=== PATIENT | male | born 1955 | race Caucasian/White ===

== ENCOUNTER 2016-04-08 13:47 | Emergency (ER) | payer OTHER ==
[~2016-04-08] VITALS: Wt 120.5 kg
[~2016-04-08 13:47] MED LIST: AMLO-147 PO; AZIT250T4 PO; BENA40TA41 PO; ETHA400T25 PO; HYD25 PO; RIF120L PO; SENN-8 PO; VALS80TA2 PO
--- NOTE | 2016-04-08 15:43 | ERD ---
ER Documentation Chief Complaint Date/Time DATE: 04/08/16 TIME: 15:40 Chief Complaint COUGH, SOB, ONSET 4 DAYS, BODY PAIN, LEG PAIN HPI This is a 60-year-old male presents to the ER with chest pain for the last 15 days. Patient states that chest pain has been constant however he has bouts of very severe pain. Chest pain is described as dull pressure-like pain. He also complains of shortness of breath. Chest pain and shortness of breath is nonexertional. 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 Patient states that 4 days ago he developed a productive cough. He denies any fevers or chills. Patient has an extensive medical history of diabetes, hypertension, asthma. Patient also complaining of body pain. ROS 12 point review of systems was done, all negative except per HPI. Medications Home Meds Active Scripts Hydrocodone/Acetaminophen ([place] 5-325 Tablet) 1 Each Tablet, 1 TAB PO Q6H Y for PAIN, #20 TAB Prov:LIVAN BARR 04/08/16 Ibuprofen* (Motrin*) 400 Mg Tab, 400 MG PO Q6, #30 TAB Prov:LIVAN BARR 04/08/16 Valsartan* (Diovan*) 80 Mg Tablet, 80 MG PO DAILY for 30 Days, TAB Prov:YULISSA CAMPBELL MD 09/19/15 Rifampin* (Rifampin* Pediatric IV Syringe) 10 Mg/Ml Susp, 600 MG PO DAILY for 30 Days Prov:YULISSA CAMPBELL MD 09/19/15 Ethambutol HCl* (Myambutol*) 400 Mg Tablet, 2400 MG PO AC LUNCH for 30 Days, TAB Prov:YULISSA CAMPBELL MD 09/19/15 Azithromycin* (Azithromycin*) 250 Mg Tablet, 500 MG PO MoWeFr@09 for 30 Days, TAB Prov:YULISSA CAMPBELL MD 09/19/15 Reported Medications Benazepril Hcl* (Benazepril Hcl*) 40 Mg Tablet, 40 MG PO DAILY, #30 TAB 09/13/15 Amlodipine Besylate* (Amlodipine Besylate*) 10 Mg Tablet, 10 MG PO DAILY, #30 TAB 09/13/15 Hydrochlorothiazide* (Hydrochlorothiazide*) 25 Mg Tab, 25 MG PO DAILY, #30 TAB 09/13/15 Sennosides/Docusate Sodium* (Senna-S*) 1 Tab Tablet, 1 TAB PO DAILY, TAB 09/13/15 Allergies Allergies: Coded Allergies: No Known Allergy (Unverified , 04/08/16) PMhx/Soc History of Surgery: Yes (BILAT INGUINAL HERNIAS, LEFT HAND POST ACCIDENT) Anesthesia Reaction: No Hx Neurological Disorder: No Hx Respiratory Disorders: No (WAS TOLD LEFT LUNG WAS DAMAGED) Hx Cardiac Disorders: Yes (HTN) Hx Psychiatric Problems: No Hx Miscellaneous Medical Probl: Yes (FUNGUS IN FEET, DM) Hx Alcohol Use: Yes (STOPPED IN JULY 2015) Hx Substance Use: Yes (COCAINE, STOPPED IN JULY 2015) Hx Tobacco Use: Yes (STOPPED IN IN JULY 2015) Smoking Status: Former smoker Physical Exam Vitals Vital Signs Date Time Temp Pulse Resp B/P Pulse Ox O2 Delivery O2 Flow Rate FiO2 04/08/16 13:58 98.9 88 18 149/74 98 Physical Exam GENERAL: The patient is well developed and appropriate for usual state of health , in no apparent distress. HEENT: Atraumatic. Conjunctivae are pink. Pupils equal, round, and reactive to light. Extraocular muscles are grossly intact. Bilateral tympanic membranes are clear with no evidence of erythema, effusion or dulling of the light reflex. The oropharynx is clear with no erythema or exudates. NECK: C-spine is soft and supple. There is no cervical lymphadenopathy. CHEST: Clear to auscultation bilaterally. There are no rales, wheezes or rhonchi. HEART: Regular rate and rhythm. No murmurs, clicks, rubs or gallops. Patient is tender to palpation to the left side of the chest along the chest wall. ABDOMEN: Soft, nontender and nondistended. Good bowel sounds. No rebound or guarding. No gross peritonitis. No gross organomegaly or masses. No Mclain sign or McBurney point tenderness. No pulsatile masses. BACK: No midline or flank tenderness. EXTREMITIES: Full range of motion. Grossly neurovascularly intact. NEURO: Alert and oriented. Result Diagram: 04/08/16 1550 04/08/16 1550 Results 24 hrs Laboratory Tests Test 04/08/16 15:50 Activated Partial Thromboplast Time 34.0Sec Anion Gap 19 Basophils # 0.110^3/ul Basophils % 1.3% Blood Morphology Comment Blood Urea Nitrogen 20mg/dl Calcium Level 9.1mg/dl Carbon Dioxide Level 26mmol/L Chloride Level 102mmol/L Creatinine 0.89mg/dl Eosinophils # 0.210^3/ul Eosinophils % 3.6% Glucose Level 96mg/dl Hematocrit 46.1% Hemoglobin 16.1g/dl INR International Normalized Ratio 0.91 Lymphocytes # 1.910^3/ul Lymphocytes % 29.0% Mean Corpuscular Hemoglobin 32.0pg Mean Corpuscular Hemoglobin Concent 34.9g/dl Mean Corpuscular Volume 91.7fl Mean Platelet Volume 11.4fl Monocytes # 0.810^3/ul Monocytes % 11.9% Neutrophils # 3.610^3/ul Neutrophils % 54.2% Nucleated Red Blood Cells # 0.010^3/ul Nucleated Red Blood Cells % 0.0/100WBC Platelet Count 36650^3/UL Potassium Level 3.7mmol/L Prothrombin Time 12.2Sec Prothrombin Time Ratio 1.0 Red Blood Count 5.0210^6/ul Red Cell Distribution Width 13.1% Sodium Level 143mmol/L Troponin I 0.040ng/ml White Blood Count 6.610^3/ul Procedures/MDM Differential diagnosis includes but is not limited to; STEMI, dissection, pneumothorax, PE, esophageal rupture, tamponade, pneumonia, pericarditis, GERD, musculoskeletal, endocarditis, anxiety. This is a 60-year-old male presents to the ER with chest pain. Chest pain has been on for the last 15 days and is reproducible on physical exam. EKG was taken and read by Dr. Braun 78bpm no st elevation no t wave inversion. I discussed this case with and he agrees with my medical decision making. Patient is afebrile and well- appearing, his troponin is negative and EKG is normal. This is likely musculoskeletal in etiology. Patient will be sent home with [place] with ibuprofen. He is to follow-up with his primary care doctor within 1-2 days or return to ER sooner if symptoms worsen. My medical decision making was shared with the patient he understands and agrees with plan. Departure Diagnosis: Primary Impression: Chest pain Condition: Stable LIVAN BARR Apr 08, 2016 15:43
--- NOTE | 2016-04-08 16:18 | RADRPT ---
PROCEDURE: XR Chest. CLINICAL INDICATION: Chest pain TECHNIQUE: Single frontal chest x-ray. COMPARISON: 09/13/2015 FINDINGS: The lungs are clear. No focal opacification is seen. Mild atelectasis / scarring is seen in the brandt g bases. The cardiomediastinal silhouette is unremarkable. The osseous structures are unremarkable. IMPRESSION: No radiographic acute cardiopulmonary abnormalities. RPTAT: BB .Marisol Tamez MD, MD Date Time Electronically viewed and signed by .Marisol Tamez MD, on 04/08/2016 16:18 .O/
[2016-04-08 16:47] LABS: INR 0.91; POTASSIUM 3.7 mmol/L (3.5-5.1); PROTIME 12.2 Sec (12.2-14.2)
[2016-04-08 16:50] LABS: CREATININE 0.89 mg/dl (0.61-1.24)
[2016-04-08 16:51] LABS: CALCIUM 9.1 mg/dl (8.4-10.2)
[2016-04-08 17:03] LABS: TROPONIN-I 0.04 ng/ml (0.00-0.12)
[2016-04-08 17:07] LABS: BASOPHIL # 0.1 10^3/ul (0.0-0.1); BASOPHILS % 1.3 % (0.0-2.0); EOSINOPHILS # 0.2 10^3/ul (0.0-0.5); EOSINOPHILS % 3.6 % (0.0-7.0); HEMATOCRIT 46.1 % (42.0-52.0); HEMOGLOBIN 16.1 g/dl (14.0-18.0); LYMPHOCYTES # 1.9 10^3/ul (0.8-2.9); MEAN CORPUSCULAR HGB CONC 34.9 g/dl (32.0-37.0); MEAN CORPUSCULAR VOLUME 91.7 fl (82.0-101.0); MEAN PLATELET VOLUME 11.4 fl (7.4-10.4); MONOCYTE # 0.8 10^3/ul (0.3-0.9); MONOCYTES % 11.9 % (0.0-11.0); NEUTROPHIL # 3.6 10^3/ul (1.6-7.5); NEUTROPHILS % 54.2 % (39.0-77.0); PLATELET COUNT 181 10^3/UL (140-440); RED BLOOD COUNT 5.02 10^6/ul (4.70-6.10); RED CELL DISTRIBUTION WIDTH 13.1 % (11.5-14.5); UNCORRECTED WBC 6.6 10^3/ul (4.8-10.8); WHITE BLOOD COUNT 6.6 10^3/ul (4.8-10.8)
[2016-04-08 17:10] LABS: CONDITION 1
[2016-04-08] MEDS ORDERED: IBUP400T22 PO (17:58)
[2016-04-08] MEDS ORDERED: HYDR-906 PO (17:58)
== END 2016-04-08 18:12 | disposition home or self-care (01) ==
LOC: FTE 13:47
DX: R07.9 Chest pain, unspecified (principal); I10 Essential (primary) hypertension; E11.9 Type 2 diabetes mellitus without complications; Z87.891 Personal history of nicotine dependence
CPT/HCPCS: 36415; 71010; 80048; 84484; 85025; 85610; 85730; 93005; Z7502

== ENCOUNTER 2017-04-22 05:43 | Inpatient (IN) | END 2017-04-30 21:30 | DRG 470 ==

== ENCOUNTER 2017-11-11 09:28 | Inpatient (IN) | END 2017-11-18 17:00 | disposition home health service (06) | DRG 470 ==

== ENCOUNTER 2018-11-18 08:04 | Day surgery (SDC) | payer MEDICARE, OTHER ==
[~2018-11-18] VITALS: Ht 167.6 cm; Wt 131.1 kg
[2018-11-18] VITALS (25 sets, daily range): BP systolic 124–161; BP diastolic 53–93; PULSE 85–104; RESP 16–49; Ht 167.6 cm; Wt 131.1 kg
[~2018-11-18 08:04] MED LIST changes: +ALBU18HF INHALATION; +ALLO100T PO; +AMIT50TA3 PO; +ASPI325T32 PO; +ASPI81TA52 PO; +ATOR20TA38 PO; -AZIT250T4 PO; -BENA40TA41 PO; +BENA40TA56 PO; +CEFAZOLIN 2 GM/50 ML (PMX) 50 ML IVPB SCH; +DOCU-216 PO; +ERGO500013 PO; -ETHA400T25 PO; +FLUT1BLS INHALATION; -HYD25 PO; +HYDR-3980 PO; +HYDR25TA6 PO; +IPRA4AER INHALATION; +METF750T43 PO; +METO-429 PO; -RIF120L PO; -SENN-8 PO; +TRAM50TA PO; -VALS80TA2 PO
[2018-11-18] MEDS ORDERED: LIDOCAINE 2% (SDV) 5 ML INJ ONE (09:56)
[2018-11-18] MEDS ORDERED: ROCURONIUM 50 MG INJ ONE (09:56)
[2018-11-18] MEDS ORDERED: PROPOFOL 20 ML ONE (09:56)
[2018-11-18] MEDS ORDERED: HYDROmorphONE 2 MG/ML SYG ONE (09:56)
[2018-11-18] MEDS ORDERED: SUCCINYLCHOLINE CHLORIDE 100 MG/5 ML SYG IV ONE (09:56)
[2018-11-18] MEDS ORDERED: CEFAZOLIN 1 GM INJ ONE (09:56)
[2018-11-18] MEDS ORDERED: HYDROmorphONE 1 MG/5 ML IV SYRINGE IV PRN ×2 (10:00)
[2018-11-18] MEDS ORDERED: MEPERIDINE 25 MG INJ IV PRN (10:00)
[2018-11-18] MEDS ORDERED: OXYCODONE/ACETAMINOPHEN (5/325) TAB PO PRN ×2 (10:00)
[2018-11-18] MEDS ORDERED: EPHEDrine 25 MG/5 ML SYG IV PRN (10:00)
[2018-11-18] MEDS ORDERED: ALBUTEROL 0.083% (NEB) 2.5 MG/3 ML AMP HHN PRN (10:00)
[2018-11-18] MEDS ORDERED: LABETALOL HCL 20MG INJ IV PRN (10:00)
[2018-11-18] MEDS ORDERED: hydrALAzine 20 MG INJ IV PRN (10:00)
[2018-11-18] MEDS ORDERED: ONDANSETRON 4 MG INJ IV PRN (10:00)
[2018-11-18] MEDS ORDERED: BUPIVACAINE 0.25% (MPF) 30 ML INJ ONE (10:32)
[2018-11-18] MEDS ORDERED: METOCLOPRAMIDE 10 MG INJ ONE (10:59)
[2018-11-18] MEDS ORDERED: ONDANSETRON 4 MG INJ ONE (10:59)
[2018-11-18] MEDS ORDERED: FAMOTIDINE 20 MG INJ ONE (10:59)
[2018-11-18] MEDS ORDERED: SUGAMMADEX SODIUM 200 MG/2 ML VIAL IV ONE (11:14)
[2018-11-18] MEDS ORDERED: EPHEDrine 25 MG/5 ML SYG ONE (11:31)
[2018-11-18] MEDS ORDERED: DESFLURANE 15 MIN ONE (11:43)
[2018-11-18] MEDS: HYDROmorphONE 1 MG/5 ML IV SYRINGE IV PRN ×3 (13:29→14:03)
== END 2018-11-18 15:53 | disposition home or self-care (01) ==
LOC: SDS 08:04
PROVIDERS: ATTEND Urology
DX: N43.3 Hydrocele, unspecified (principal); N43.40 Spermatocele of epididymis, unspecified; I10 Essential (primary) hypertension; E11.9 Type 2 diabetes mellitus without complications; E78.5 Hyperlipidemia, unspecified; J45.909 Unspecified asthma, uncomplicated; R06.02 Shortness of breath
CPT/HCPCS: 82962; 88304; 94664; J0690; J1170; J2405; J2765